=== PATIENT | female | born 1935 | race Caucasian/White ===

== ENCOUNTER → 2020-11-10 | Outpatient (REF) | payer MEDICARE | LOC: M LAB REF 16:24 | PROVIDERS: ATTEND Physician Assistant Medical | DX: N39.0 Urinary tract infection, site not specified (principal) ==

== ENCOUNTER → 2020-11-16 | Outpatient (REF) | payer MEDICARE ==
[2020-11-16 14:45] LABS: C REACTIVE PROTEIN QUANTITATIV < 0.30 MG/DL (0.00-0.30); RHEUMATOID FACTOR QUANT < 10.0 IU/ML (<15.0); VITAMIN B12 LEVEL 865 PG/ML (247-911)
[2020-11-18 00:10] LABS: ANTINUCLEAR ANTIBODIES DIRECT Negative (Negative); CYCLIC CITRULLINATED PEPTIDE 5 units (0-19)
== END ==
LOC: M LAB REF 11:59
PROVIDERS: ATTEND Internal Medicine
DX: G31.84 Mild cognitive impairment of uncertain or unknown etiology (principal); R44.3 Hallucinations, unspecified

== ENCOUNTER 2020-11-29 13:43 | Inpatient (IN) | payer MEDICARE ==
[~2020-11-29] VITALS: Ht 147.3 cm; Wt 44.7 kg
[2020-11-29] MEDS ORDERED: TRAZ-252 PO (14:12)
--- NOTE | 2020-11-29 14:33 | REP ---
INDICATION: Altered Mental Status. COMPARISON: 12/31/2018 a two view exam TECHNIQUE: Portable FINDINGS: The technique utilized in obtaining the radiograph has magnified the cardiac silhouette and accentuated the interstitial markings. There is cardiomegaly accentuated by technique. Scattered interstitial fibrotic changes are again seen throughout the lung orozco status quo. No acute patchy parenchymal opacities or pleural effusions have developed. There is no significant change in appearance of the imaged osseous structures. A few soft tissue calcifications are seen adjacent to the right humeral head. IMPRESSION: Cardiomegaly and chronic changes as described above. There is no evidence of acute cardiopulmonary disease or significant change compared to the prior exam. <Electronically signed by Trae Jacobo > 11/29/20 [id number]
--- NOTE | 2020-11-29 14:45 | REP ---
INDICATION: Altered Mental Status. COMPARISON: None. FINDINGS: No acute bleed or acute large vessel territorial infarct. Ventricles, cisterns and sulci are within normal limits for age. No mass effect or midline shift. No abnormal fluid collections. Paranasal sinuses and mastoid air cells are clear IMPRESSION: No acute findings. Age-related volume loss and white matter changes. <Electronically signed by Jitendra Lynch > 11/29/20 [id number]
[2020-11-29 14:58] LABS: VENOUS BASE EXCESS 2.4 (-2.0-2.0); VENOUS O2 SATURATION 87.1 % (60.0-80.0); VENOUS PARTIAL PRESSURE CO2 46.6 mmHg (38.0-50.0); VENOUS PARTIAL PRESSURE O2 50.7 mmHg (30.0-50.0); VENOUS PH 7.396 UNITS (7.330-7.430); VENOUS STANDARD HCO3 26.4 MEQ/L; VENOUS TOTAL CO2 29.4 MEQ/L (24.0-28.0)
[2020-11-29 15:05] LABS: BASO # 0.1 10^3/uL (0.0-0.2); BASO % 0.6 % (0.0-1.0); EOS # 0.1 10^3/uL (0.0-0.5); EOS % 0.5 % (0.0-3.0); HEMATOCRIT 41.6 % (36.0-47.0); HEMOGLOBIN 13.2 g/dl (12.0-15.5); LYMPH # 0.8 10^3/uL (1.5-5.0); LYMPH % 7.8 % (24.0-44.0); MEAN CORPUSCULAR HEMOGLOBIN 31.7 pg (27.0-33.0); MEAN CORPUSCULAR HGB CONC 31.7 g/dl (32.0-36.5); MEAN CORPUSCULAR VOLUME 99.8 fl (80.0-96.0); MONO # 0.9 10^3/uL (0.0-0.8); MONO % 9.1 % (2.0-8.0); NEUTROPHILS # 8.1 10^3/uL (1.5-8.5); NEUTROPHILS % 81.3 % (36.0-66.0); PLATELET COUNT, AUTOMATED 221 10^3/uL (150-450); RED BLOOD COUNT 4.17 10^6/uL (4.00-5.40); WHITE BLOOD COUNT 9.9 10^3/uL (4.0-10.0)
[2020-11-29 15:42] LABS: OSMOLALITY SERUM 300 MOSM/KG (280-301)
[2020-11-29 15:51] LABS: BLOOD UREA NITROGEN 20 MG/DL (7-18); CALCIUM LEVEL 9.5 MG/DL (8.8-10.2); CARBON DIOXIDE LEVEL 27 MEQ/L (21-32); CHLORIDE LEVEL 110 MEQ/L (98-107); CREATININE FOR GFR 0.81 MG/DL (0.55-1.30); GLOMERULAR FILTRATION RATE > 60.0 (>32); GLUCOSE, FASTING 102 MG/DL (70-100); SODIUM LEVEL 145 MEQ/L (136-145)
[2020-11-29 15:52] LABS: ALBUMIN 3.6 GM/DL (3.2-5.2); ALT/SGPT 39 U/L (12-78); BILIRUBIN,DIRECT 0.2 MG/DL (0.0-0.2); BILIRUBIN,TOTAL 0.5 MG/DL (0.2-1.0); CK-MB VALUE MASS 1.5 NG/ML (<3.6); CPK CREATINE PHOSPHOKINASE 51 U/L (26-192); MB/CK RELATIVE INDEX 2.94 (< OR =4); TOTAL PROTEIN 6.4 GM/DL (6.4-8.2); TROPONIN I < 0.02 NG/ML (< 0.10)
[2020-11-29] MEDS ORDERED: MM S100C PO (18:08)
[2020-11-29] MEDS ORDERED: TRAV04OPD OU (18:08)
--- NOTE | 2020-11-29 18:34 | HPE ---
HISTORY AND PHYSICAL DATE OF ADMISSION: 11/29/2020 PRIMARY CARE PROVIDER: Lakisha Renee M.D. CHIEF COMPLAINT: Delirium. HISTORY OF PRESENT ILLNESS: Veronica Tellez is an 85-year-old patient of Dr. Lakisha Renee who was brought by the daughter for altered mental status. Apparently she was out in the middle of the road, was not sure where she was, and was needed help by a landscaping crew to get off the road. Apparently was mildly disruptive, but that has passed. Per the daughter for the past month, she has had visual and auditory hallucinations. She has had dementia symptoms that have been more chronic, but the altered mental status has been over the past month. There has been no fever, chills, infections, head injury, or falls. I do not have access to Dr. Renee's records, but I think there has been some workup done. PAST MEDICAL HISTORY: Essentially benign. No hospitalizations and no chronic medications. PAST SURGICAL HISTORY: Bilateral cataracts. ALLERGIES: None. MEDICATIONS: Per daughter no chronic medications, herbal supplements, or vitamins. SOCIAL HISTORY: Quit smoking many years ago. Has one to two glasses of red wine two to three days a week. REVIEW OF SYSTEMS: No cough, wheeze, shortness of breath, fever, chills, frequency, urgency, dysuria, headache, or neck stiffness. PHYSICAL EXAMINATION: VITAL SIGNS: Per flow sheet. Blood pressure 182/86 and was 150/78 when she arrived. GENERAL: She is alert and conversant. HEENT: Normocephalic, atraumatic. Pupils equal and reactive to light. Oropharynx benign. NECK: No masses. No thyromegaly. No cervical adenopathy. LUNGS: Clear. HEART: Regular rhythm with a 1/6 systolic ejection murmur. ABDOMEN: Soft and nontender with no masses. EXTREMITIES: No clubbing, cyanosis, or edema. No asterixis. Normal strength in the arms and legs. No tremor. NEUROLOGIC: No facial droop or weakness. Speech is appropriate and goal directed. Answers are vague and lack content, but are specific for the question. LABORATORY DATA: Electrolytes unremarkable. Ammonia normal. TSH normal. B12 normal. White count 9.9, hemoglobin 13.2, platelets 221,000. Urinalysis looks clear. Had an RPR done on 11/16/2020, that was nonreactive. Had a rheumatologic workup done on 11/16/2020, that was negative with a negative rheumatoid factor and negative YANIRA. IMAGING DATA: CT of the head showed age-related volume loss and nothing acute. Chest x-ray wit no active disease. IMPRESSION: Delirium superimposed on dementia. PLAN: To be admitted to an observation bed and observed overnight. The workup is essentially complete. I will order an EEG in the face of the hallucinations and get a neurology consultation in the morning. I suspect this is going to be an age-related dementia with superimposed delirium.
--- NOTE | 2020-11-29 20:28 | REPVR ---
PROCEDURE INFORMATION: Exam: MR Head Without Contrast Exam date and time: 11/29/2020 7:40 PM Age: 85 years old Clinical indication: Altered mental status/memory loss; Confusion or disorientation; Additional info: AMS TECHNIQUE: Imaging protocol: MR of the head without contrast. COMPARISON: CT Head without contrast 11/29/2020 2:31 PM FINDINGS: There is motion artifact. Major vascular flow voids at the skull base are preserved. No extra-axial fluid collection. No hydrocephalus. Age-related volume loss. Non-specific white matter gliosis, probable chronic microvascular ischemia. No midline shift or intracranial mass effect. No cerebral edema or pathologic susceptibility. No diffusion restriction. Mild paranasal sinus disease. Minimal fluid signal involving the right mastoid air cells. IMPRESSION: No acute intracranial abnormality. Electronically signed by: Huseyin Spence On 11/29/2020 20:29:06 PM
[2020-11-29 21:05] VITALS: BP 143/80
[2020-11-30 06:00] VITALS: BP 139/78
--- NOTE | 2020-11-30 10:06 | IPN ---
PROGRESS NOTE DATE: 11/30/2020 SUBJECTIVE: [facility] and delirium superimposed on dementia. She did not sleep well. Today she is having the delusion that her is trapped within the armrest of her bed. She is aware that this is not possible and apologizes for believing it. OBJECTIVE: VITAL SIGNS: Afebrile. Vital signs stable. GENERAL APPEARANCE: Alert, conversant, and looks tired. HEENT: Unremarkable. LUNGS: Clear. HEART: Regular rhythm with a 1/6 systolic ejection murmur. ABDOMEN: Soft and nontender with no masses. NEUROLOGIC: Nonfocal and unchanged. IMAGING DATA: MRI of the brain was unremarkable. IMPRESSION AND PLAN: Delirium superimposed on dementia. I asked neurology to see her and I am waiting for their dictated note. MRI was unremarkable. We will start some low dose Haldol to see if helps correct some of these perception problems.
--- NOTE | 2020-11-30 10:11 | ECGEPIP ---
[facility] - ED Test Date: 2020-11-29 Pat Name: ANDIE SYLVESTER Department: Room: - Gender: Female Urology Nurse: ILDA : [id number] Requested By: Mireille Lucas Order Number: [id number] Reading MD: Mireille Lucas Measurements Intervals Jeannette Rate: 79 P: 60 ME: 126 QRS: -20 QRSD: 76 T: 27 QT: 368 QTc: 421 Interpretive Statements Normal sinus rhythm Inferior infarct , age undetermined NSTTW abnormalities No prior Electronically Signed on 11-30-2020 10:11:15 EDT by Mireille Lucas
[2020-11-30 10:53] LABS: FREE T4 1.01 NG/DL (0.76-1.46)
[2020-11-30] MEDS: HALOPERIDOL 0.25MG PER 1/2 TABLET PO SCH ×2 (12:32→20:02)
[2020-11-30 13:45] LABS: VITAMIN B12 LEVEL 577 PG/ML (247-911)
[2020-11-30 13:47] LABS: FOLATE 15.2 NG/ML (>5.4)
[2020-11-30 14:00] VITALS: BP 152/82
[2020-11-30 22:00] VITALS: BP 162/80
--- NOTE | 2020-11-30 22:30 | CR ---
CONSULTATION DATE: 11/30/2020 REFERRING PHYSICIAN: Dr. Keyon Neri DIAGNOSIS/REASON FOR CONSULTATION: Delirium, altered mental status. HISTORY OF PRESENT ILLNESS: Veronica Tellez is an 85-year-old woman, who was brought to [facility] due to altered mental status. She was out in the middle of the road and was not sure where she was. She needed help by a saute chef to get her off the road. She was mildly disruptive. Patient was having visual and auditory hallucinations according to patient's daughter. Patient has had symptoms of dementia, which may have been chronic and her state has worsened over the last month. There are no reports of fever, chills, infection, head injury, fall. When I saw the patient in her room today, she was sitting in her chair and stated that she was trying to help the man lying in her bed when there was nobody there. She appeared to have difficulty understanding anything more than one step questions or commands. At one point, she stated that she did not want me to examine or talk to her. Her bedside nurse had to convince her for me to be allowed to continue my history and examination. She denies any headaches, neck pain, back pain, dysphagia, dysarthria, diplopia, urinary incontinence. She at times had difficulty understanding questions. PAST SURGICAL HISTORY: Cataract surgeries. ALLERGIES: None. HOME MEDICATIONS: None. SOCIAL HISTORY: She quit smoking several years ago. She used to drink 1 or 2 glasses of red wine 2 or 3 times a week. REVIEW OF SYSTEMS: All systems were reviewed and found to be noncontributory except as mentioned in the history of present illness. PHYSICAL EXAMINATION: VITAL SIGNS: Temperature 97.6, pulse 72, respiratory rate 17, blood pressure 139/78, 95% saturation on room air. HEART: Regular rate and rhythm. LUNGS: Clear to auscultation. ABDOMEN: Soft, nontender, non-distended. EXTREMITIES: No pedal edema. No musculoskeletal abnormalities. No rash. No sign of meningeal irritation. No dysmetria. NEUROLOGIC: Patient is awake, alert, oriented to self mostly. She was able to tell me the year. She was unable to tell me name of president, city, state, place, day of week. She is unable to do serial 7's. Recall is 0/3 at 5 minutes. She cannot spell world backwards. She appears to have difficulty in comprehension of speech. Her speech was clear. No facial weakness. Tongue and uvula are midline. Extraocular muscles are intact. No nystagmus.5/5 strength in all four extremities. She has mild bilateral cogwheel rigidity. She uses a walker for ambulation. DIAGNOSTIC STUDIES: MRI scan of brain was reviewed and showed moderate atrophy and small vessel ischemic disease of brain. Urinalysis was normal. Vitamin B12 was 577. was 2. CBC and metabolic profile were within normal limits. ASSESSMENT: 1. Suspected Lewy body dementia. 2. Altered mental status, delirium with hallucinations. PLAN: 1. EEG is pending. 2. Trial of Seroquel 25 mg p.o. q.h.s. and increase it as tolerated. 3. Use walker and likely she will need placement [facility].
[2020-12-01] MEDS ORDERED: haloperidoL 0.5 MG TAB PO ONE (00:55)
[2020-12-01] MEDS ORDERED: RAMELTEON 8 MG TAB (ROZEREM) PO PRN (00:55)
--- NOTE | 2020-12-01 10:25 | IPN ---
PROGRESS NOTE DATE: 12/01/2020 SUBJECTIVE: Veronica apparently was disruptive last night and was given a single extra dose of Haldol around 1 a.m., this morning she is sleeping, I cannot arouse her. She was seen by neurology and they feel she has Lewy-Body dementia and is recommending Seroquel 25 mg at bedtime. OBJECTIVE: Sleeping and not arousable. Lungs are clear. Heart is a regular rhythm. Abdomen is soft, nontender. LABORATORY DATA: Unchanged and unremarkable. B12, folate, TSH and RPR are all unremarkable. IMPRESSION: 1. Lewy-Body dementia. PLAN: Sruthi will start Seroquel 25 mg q.h.s. TFS will need to work with the daughter for plans on discharge to home or placement.
--- NOTE | 2020-12-01 11:16 | EEG ---
ELECTROENCEPHALOGRAM DATE: 11/30/2020 DIAGNOSIS: Altered mental status. EEG# [id number] REFERRING PHYSICIAN: Keyon Neri MD. HISTORY: Patient is an 85-year-old woman who was admitted at [facility] due to altered mental status, hallucinations. This EEG was done to assess encephalopathy and rule out epileptic potential. She is currently on no medications. TECHNICAL DESCRIPTION: This digital EEG was recorded by 21-scalp, ear, and two EKG electrodes and was reviewed in bipolar and referential montages following reformatting in 10-20 international electrode placement system. INTERPRETATION: Patient was noted to be in awake and drowsy states during this EEG. Resting and awake background rhythm consisted of 8-9 Hz alpha activity measuring 10-20 microvolts in amplitude, which was symmetric bilaterally. Attenuation of posterior dominant rhythm was seen during transition into drowsiness. No sleep was achieved. Hyperventilation was not performed. Photic stimulation remained unremarkable. EKG revealed normal sinus rhythm. No focal, lateralizing, or epileptiform abnormalities were seen. Mild intermittent bilateral temporal theta slowing was noted. No relevant clinical activity was noted. CONCLUSION: This EEG in awake and drowsy states is abnormal due to low amplitude and intermittent bilateral slowing consistent with nonspecific diffuse cerebral dysfunction such as seen in dementia and encephalopathy due to multiple potential causes. No epileptiform abnormalities were seen. Clinical correlation is recommended.
[2020-12-01 14:00] VITALS: BP 146/95
[2020-12-01] MEDS: QUEtiapine FUMARATE 25 MG TAB PO SCH (20:00)
[2020-12-01 22:00] VITALS: BP 129/85
[2020-12-02 06:00] VITALS: BP 121/61
[2020-12-02 14:00] VITALS: BP 123/74
--- NOTE | 2020-12-02 17:55 | IPNPDOC ---
Subjective Date Seen The patient was seen on 12/02/20. Subjective Chief Complaint/HPI Mrs. Tellez is an 85 year old female who is here for Lewy-Body dementia. Denies chest pain or dyspnea today. No events overnight. Pending placement. Objective Physical Examination General Exam: Positive: Alert, Cooperative Eye Exam: Negative: Sclera icteric Neck Exam: Positive: Supple Chest Exam: Positive: Clear to auscultation Heart Exam: Positive: Rate Normal, Regular Rhythm Abdomen Exam: Positive: Normal bowel sounds, Soft; Negative: Tenderness Extremity Exam: Negative: Edema Neuro Exam: Positive: Normal Speech Assessment /Plan Assessment Mrs. Tellez is an 85 year old female here with Lewy-body dementia. Will need placement. Plan/VTE VTE Prophylaxis Ordered?: Yes Plan 1. Delirium on dementia -Neurology consulted, recommendations appreciated -Neurology recommended Seroquel -Otherwise, no signs of infectious cause for delirium. Denies pain. 2. Constipation -No bowel movement recordered -Start Colace and Miralax 3. DVT ppx -TEDs Disposition: Pending placement VS, I&O, 24H, Fishbone Vital Signs/I&O Vital Signs Date Time Temp Pulse Resp B/P (MAP) Pulse Ox O2 Delivery O2 Flow Rate FiO2 12/02/20 14:00 96.7 77 17 123/74 (90) 98 Room Air I&O- Last 24 Hours up to 6 AM 12/02/20 06:00 Intake Total 400 ml Balance 400 ml LITA ERIC DO Dec 02, 2020 17:55
[2020-12-02] MEDS: QUEtiapine FUMARATE 25 MG TAB PO SCH (20:15)
[2020-12-02 22:00] VITALS: BP 137/91
[2020-12-03 06:00] VITALS: BP 126/64
[2020-12-03 14:00] VITALS: BP 139/84
--- NOTE | 2020-12-03 15:12 | IPNPDOC ---
Subjective Date Seen The patient was seen on 12/03/20. Subjective Chief Complaint/HPI Mrs. Tellez is an 85 year old female who is here for Lewy-Body dementia. She was seen sleeping in bed. Denies chest pain or dyspnea. Objective Physical Examination General Exam: Positive: Alert, Cooperative Eye Exam: Negative: Sclera icteric Neck Exam: Positive: Supple Chest Exam: Positive: Clear to auscultation Heart Exam: Positive: Rate Normal, Regular Rhythm Abdomen Exam: Positive: Normal bowel sounds, Soft; Negative: Tenderness Extremity Exam: Negative: Edema Neuro Exam: Positive: Normal Speech Assessment /Plan Assessment Mrs. Tellez is an 85 year old female here with Lewy-body dementia. Will need placement. Plan/VTE VTE Prophylaxis Ordered?: Yes Plan 1. Delirium on dementia -Neurology consulted, recommendations appreciated -Neurology recommended Seroquel -Otherwise, no signs of infectious cause for delirium. Denies pain. 2. Constipation -No bowel movement recorded -Start Colace and Miralax 3. DVT ppx -TEDs Disposition: Pending placement VS, I&O, 24H, Fishbone Vital Signs/I&O Vital Signs Date Time Temp Pulse Resp B/P (MAP) Pulse Ox O2 Delivery O2 Flow Rate FiO2 12/03/20 06:00 98.2 77 16 126/64 (84) 98 Room Air I&O- Last 24 Hours up to 6 AM 12/03/20 06:00 Intake Total 570 ml Balance 570 ml LITA ERIC DO Dec 03, 2020 15:12
[2020-12-03] MEDS ORDERED: MIRALAX *UNIT DOSE* 17GM PACKET PO PRN (15:15)
[2020-12-03] MEDS: DOCUSATE SODIUM 100MG CAPSULE PO SCH (20:13)
[2020-12-03] MEDS: QUEtiapine FUMARATE 25 MG TAB PO SCH (20:13)
[2020-12-03 22:00] VITALS: BP 121/67
[2020-12-04 06:00] VITALS: BP 140/80
[2020-12-04 07:03] LABS: HEMATOCRIT 42.6 % (36.0-47.0); HEMOGLOBIN 13.7 g/dl (12.0-15.5); MEAN CORPUSCULAR HEMOGLOBIN 31.7 pg (27.0-33.0); MEAN CORPUSCULAR HGB CONC 32.2 g/dl (32.0-36.5); MEAN CORPUSCULAR VOLUME 98.6 fl (80.0-96.0); PLATELET COUNT, AUTOMATED 209 10^3/uL (150-450); RED BLOOD COUNT 4.32 10^6/uL (4.00-5.40); WHITE BLOOD COUNT 10.2 10^3/uL (4.0-10.0)
[2020-12-04 07:27] LABS: BLOOD UREA NITROGEN 28 MG/DL (7-18); CALCIUM LEVEL 9.7 MG/DL (8.8-10.2); CARBON DIOXIDE LEVEL 29 MEQ/L (21-32); CHLORIDE LEVEL 104 MEQ/L (98-107); GLOMERULAR FILTRATION RATE > 60.0 (>32); GLUCOSE, FASTING 95 MG/DL (70-100); SODIUM LEVEL 140 MEQ/L (136-145)
[2020-12-04] MEDS: DOCUSATE SODIUM 100MG CAPSULE PO SCH ×2 (08:45→22:17)
[2020-12-04] MEDS: SENNA 8.6 MG TAB (SENOKOT) PO SCH (12:45)
[2020-12-04] MEDS: MIRALAX *UNIT DOSE* 17GM PACKET PO SCH (12:46)
[2020-12-04 14:00] VITALS: BP 144/98
--- NOTE | 2020-12-04 20:48 | IPNPDOC ---
Subjective Date Seen The patient was seen on 12/04/20. Subjective Chief Complaint/HPI Mrs. Tellez is an 85 year old female who is here for Lewy-Body dementia. She was seen this morning moving furniture. Denies chest pain or dyspnea Objective Physical Examination General Exam: Positive: Alert, Cooperative Eye Exam: Negative: Sclera icteric Neck Exam: Positive: Supple Chest Exam: Positive: Clear to auscultation Heart Exam: Positive: Rate Normal, Regular Rhythm Abdomen Exam: Positive: Normal bowel sounds, Soft; Negative: Tenderness Extremity Exam: Negative: Edema Neuro Exam: Positive: Normal Speech Assessment /Plan Assessment Mrs. Tellez is an 85 year old female here with Lewy-body dementia. Will need placement. Plan/VTE VTE Prophylaxis Ordered?: Yes Plan 1. Delirium on dementia -Neurology consulted, recommendations appreciated -Neurology recommended Seroquel -Otherwise, no signs of infectious cause for delirium. Denies pain. 2. Constipation -No bowel movement recorded -Colace, 0Miralax, and Senna 3. DVT ppx -TEDs Disposition: Pending placement VS, I&O, 24H, [facility] Vital Signs/I&O Vital Signs Date Time Temp Pulse Resp B/P (MAP) Pulse Ox O2 Delivery O2 Flow Rate FiO2 12/04/20 14:00 97.4 94 18 144/98 (113) 100 Room Air I&O- Last 24 Hours up to 6 AM 12/04/20 06:00 Intake Total 750 ml Balance 750 ml Laboratory Data 24H LABS Laboratory Tests 2 12/04/20 06:27: Nucleated Red Blood Cells % (auto) 0.0, Anion Gap 7L, Glomerular Filtration Rate > 60.0, Calcium Level 9.7 CBC/BMP Laboratory Tests 12/04/20 06:27 LITA ERIC DO Dec 04, 2020 20:48
[2020-12-04] MEDS ORDERED: BISACODYL ENEMA 10 MG/30 ML PR PRN (20:50)
[2020-12-04 22:00] VITALS: BP 131/72
[2020-12-04] MEDS: QUEtiapine FUMARATE 25 MG TAB PO SCH (22:17)
[2020-12-05 06:00] VITALS: BP 144/82
[2020-12-05] MEDS: SENNA 8.6 MG TAB (SENOKOT) PO SCH (10:19)
[2020-12-05] MEDS: DOCUSATE SODIUM 100MG CAPSULE PO SCH ×3 (10:19→20:13)
[2020-12-05] MEDS: MIRALAX *UNIT DOSE* 17GM PACKET PO SCH (10:19)
[2020-12-05] MEDS: QUEtiapine FUMARATE 12.5 MG HALF-TAB PO SCH (14:38)
[2020-12-05] MEDS: QUEtiapine FUMARATE 25 MG TAB PO SCH (20:06)
--- NOTE | 2020-12-05 20:54 | IPNPDOC ---
Subjective Date Seen The patient was seen on 12/05/20. Subjective Chief Complaint/HPI Mrs. Tellez is an 85 year old female who is here for Lewy-Body dementia. She was seen this morning, Standing near the door. Denies chest pain or dyspnea. Objective Physical Examination General Exam: Positive: Alert, Cooperative Eye Exam: Negative: Sclera icteric Neck Exam: Positive: Supple Chest Exam: Positive: Clear to auscultation Heart Exam: Positive: Rate Normal, Regular Rhythm Abdomen Exam: Positive: Normal bowel sounds, Soft; Negative: Tenderness Extremity Exam: Negative: Edema Neuro Exam: Positive: Normal Speech Assessment /Plan Assessment Mrs. Tellez is an 85 year old female here with Lewy-body dementia. Will need placement. Plan/VTE VTE Prophylaxis Ordered?: Yes Plan 1. Delirium on dementia -Neurology consulted, recommendations appreciated -Neurology recommended Seroquel -Otherwise, no signs of infectious cause for delirium. Denies pain. -Will try a dose of AM Seroquel for behavior issues 2. Constipation -No bowel movement recorded -Colace, 0Miralax, and Senna 3. DVT ppx -TEDs Disposition: Pending placement. Patient will be made ALC today VS, I&O, 24H, Fishbone Vital Signs/I&O Vital Signs Date Time Temp Pulse Resp B/P (MAP) Pulse Ox O2 Delivery O2 Flow Rate FiO2 12/05/20 06:00 97.6 87 17 144/82 (102) 98 Room Air I&O- Last 24 Hours up to 6 AM 12/05/20 06:00 Intake Total 1510 ml Balance 1510 ml LITA ERIC DO Dec 05, 2020 20:54
[2020-12-06 06:00] VITALS: BP_SYST 127; BP_SYST 130; BP_DIAS 63; BP_DIAS 68
[2020-12-06] MEDS: DOCUSATE SODIUM 100MG CAPSULE PO SCH ×2 (16:05→20:00)
[2020-12-06] MEDS: MIRALAX *UNIT DOSE* 17GM PACKET PO SCH (16:05)
[2020-12-06] MEDS: SENNA 8.6 MG TAB (SENOKOT) PO SCH (16:05)
[2020-12-06] MEDS: QUEtiapine FUMARATE 12.5 MG HALF-TAB PO SCH (17:12)
[2020-12-06] MEDS: QUEtiapine FUMARATE 25 MG TAB PO SCH (20:00)
[2020-12-07 06:00] VITALS: BP 144/85
[2020-12-07] MEDS: MIRALAX *UNIT DOSE* 17GM PACKET PO SCH (16:30)
[2020-12-07] MEDS: SENNA 8.6 MG TAB (SENOKOT) PO SCH (16:30)
[2020-12-07] MEDS: DOCUSATE SODIUM 100MG CAPSULE PO SCH ×2 (16:30→20:29)
[2020-12-07] MEDS: QUEtiapine FUMARATE 12.5 MG HALF-TAB PO SCH (16:31)
[2020-12-07] MEDS: QUEtiapine FUMARATE 25 MG TAB PO SCH (20:29)
[2020-12-07] MEDS: HEPARIN SOD (PORCINE) 5000UNITS/ML 1ML VIAL/SYRINGE SQ SCH (20:33)
[2020-12-08 06:00] VITALS: BP 133/67
[2020-12-08] MEDS: HEPARIN SOD (PORCINE) 5000UNITS/ML 1ML VIAL/SYRINGE SQ SCH (09:00)
[2020-12-08] MEDS ORDERED: DOK1CAP7 PO (09:13)
[2020-12-08] MEDS ORDERED: SENN18TA PO (09:13)
[2020-12-08] MEDS ORDERED: MIRA1POW3 PO (09:13)
[2020-12-08] MEDS ORDERED: BISA10EN PR (09:13)
[2020-12-08] MEDS ORDERED: QUET25TA3 PO ×2 (09:13)
--- NOTE | 2020-12-08 09:24 | REP ---
INDICATION: constipation. COMPARISON: None. FINDINGS: KUB shows the intestinal gas pattern to be nonspecific. The organ silhouettes insofar as delineated are unremarkable. There is no evidence of free intraperitoneal air. A 2.4 cm size calcification is seen in the right mid abdomen possibly representing a large cholelith. IMPRESSION: Nonspecific. <Electronically signed by Trae Jacobo > 12/08/20 [id number]
[2020-12-08] MEDS: QUEtiapine FUMARATE 12.5 MG HALF-TAB PO SCH (09:41)
[2020-12-08] MEDS: SENNA 8.6 MG TAB (SENOKOT) PO SCH (09:42)
[2020-12-08] MEDS: DOCUSATE SODIUM 100MG CAPSULE PO SCH (09:42)
[2020-12-08] MEDS: MIRALAX *UNIT DOSE* 17GM PACKET PO SCH (09:42)
--- NOTE | 2020-12-08 10:00 | DS.PDOC ---
Discharge Summary General Date of Admission Dec 01, 2020 at 10:07 Date of Discharge Dec 08, 2020 Specialist/Consultants [facility], Dr. Posey Discharge Summary PROCEDURES PERFORMED DURING STAY: None ADMITTING DIAGNOSES: 1. Delirium on age related dementia DISCHARGE DIAGNOSES: 1. Delirium on Lewy body dementia 2. Constipation COMPLICATIONS/CHIEF COMPLAINT: Acute Delirium. HISTORY OF PRESENT ILLNESS: Mrs. Tellez is an 85 year old female who was brought here by daughter for AMS. She was in the middle of the road confused. The [employer] crew helped her off the road. In the past month, she has visual and auditory hallucinations. She also has been worsening dementia symptoms. Denies any fever/chills, infections, head injury, or falls. HOSPITAL COURSE: While here, work up was unremarkable. No fever or leukocytosis. No signs of UTI or other infection. Neurology was consulted. Suspected that patient has Lewy-body dementia and recommended Seroquel. Patient was started on Seroquel. Otherwise, she had constipation and was started on laxatives. This morning, patient denies any chest pain or dyspnea. She is being transferred to [facility] at [place], [place]. DISCHARGE MEDICATIONS: Please see below. ALLERGIES: Please see below. PHYSICAL EXAMINATION ON DISCHARGE: VITAL SIGNS: Please see below. GENERAL: Comfortable, in no apparent distress HEENT: Head normocephalic, atraumatic, sclera clear NECK: Supple CARDIOVASCULAR EXAMINATION: Regular rate and rhythm RESPIRATORY EXAMINATION: Lungs clear to auscultation bilaterally ABDOMINAL EXAMINATION: Soft, nontender, normal bowel sounds EXTREMITIES: No pitting edema PSYCHIATRIC EXAMINATION: Pleasant LABORATORY DATA: Please see below. IMAGING: Radiologist interpretation CT head No acute findings. Age-related volume loss and white matter changes. MRI brain No acute intracranial abnormality. CXR FINDINGS: The technique utilized in obtaining the radiograph has magnified the cardiac silhouette and accentuated the interstitial markings. There is cardiomegaly accentuated by technique. Scattered interstitial fibrotic changes are again seen throughout the lung orozco status quo. No acute patchy parenchymal opacities or pleural effusions have developed. There is no significant change in appearance of the imaged osseous structures. A few soft tissue calcifications are seen adjacent to the right humeral head. IMPRESSION: Cardiomegaly and chronic changes as described above. There is no evidence of acute cardiopulmonary disease or significant change compared to the prior exam. KUB (abdominal flat plate) FINDINGS: KUB shows the intestinal gas pattern to be nonspecific. The organ silhouettes insofar as delineated are unremarkable. There is no evidence of free intraperitoneal air. A 2.4 cm size calcification is seen in the right mid abdomen possibly representing a large cholelith. IMPRESSION: Nonspecific. PROGNOSIS: Good ACTIVITY: As tolerated. DIET: As tolerated DISCHARGE PLAN: [facility] [place], [place] DISPOSITION: [facility] [place], [place]. DISCHARGE INSTRUCTIONS: 1. Follow up with PCP in 1 week DISCHARGE CONDITION: Stable. Total time spent on discharge planning, discharge summary, and medication reconciliation: 45 minutes Vital Signs/I&Os Vital Signs Date Time Temp Pulse Resp B/P (MAP) Pulse Ox O2 Delivery O2 Flow Rate FiO2 12/08/20 06:00 97.4 70 18 133/67 (89) 96 12/06/20 06:00 Room Air I&O- Last 24 Hours up to 6 AM 12/08/20 06:00 Intake Total 820 ml Output Total 100 ml Balance 720 ml Laboratory Data Labs 24H Laboratory Tests 2 12/08/20 06:08: Coronavirus (COVID-19)(PCR) NEGATIVE Discharge Medications Scheduled Docusate Sodium (Dok) 100 Mg Capsule, 100 MG PO BID Quetiapine Fumarate (Quetiapine Fumarate) 25 Mg Tablet, 25 MG PO QHS Quetiapine Fumarate (Quetiapine Fumarate) 25 Mg Tablet, 12.5 MG PO QAM Senna (Senna Lax) 8.6 Mg Tablet, 2 TAB PO DAILY Travoprost (Travatan Z) 0.004% 2.5ML Drops, 1 DROP OU QHS, (Reported) Scheduled PRN Bisacodyl (Bisacodyl) 10 Mg/30 Ml Enema, 10 MG NJ DAILYPRN PRN for Constipation Polyethylene Glycol 3350 (Miralax) 17 Gm Powd.pack, 1 PKT PO DAILYPRN PRN for CONSTIPATION Allergies Coded Allergies: No Known Allergies (Unverified , 11/29/20) LITA ERIC DO Dec 08, 2020 09:27
== END 2020-12-08 13:20 | DRG 57 ==
LOC: M ED 13:43 → M ED INP 13:44 → M MSPAV 21:07 → OBSVTOIN 12-01 10:07
PROVIDERS: ADMIT Family Medicine; ATTEND Internal Medicine
DX: G31.83 Neurocognitive disorder with Lewy bodies (principal); F05 Delirium due to known physiological condition; K59.00 Constipation, unspecified; F02.80 Dementia in other diseases classified elsewhere, unspecified severity, without behavioral disturbance, psychotic disturbance, mood disturbance, and anxiety; Z79.899 Other long term (current) drug therapy; Z98.41 Cataract extraction status, right eye; Z98.42 Cataract extraction status, left eye